=== PATIENT | male | born 1980 | race Caucasian/White ===

== ENCOUNTER 2019-06-14 17:31 | Emergency (ER) | payer OTHER ==
[2019-06-14] MEDS ORDERED: PSEUDOEPHEDRINE HCL 60 MG TABLET PO ONE (18:06)
[2019-06-14] MEDS ORDERED: IBUPROFEN 600 MG TABLET (FP) PO ONE ×2 (18:06→18:12)
--- NOTE | 2019-06-14 18:06 | PDOC ---
History of Present Illness - General Chief Complaint: Cold Symptoms Stated Complaint: FLU SYMPTOMS Time Seen by Provider: 06/14/19 17:35 - History of Present Illness Initial Comments: HPI: HPI: 39yo M with no reported PMH complaining of cough, congestion, chills for the past two weeks. Patient's sick contacts include his who has similar symptoms, but they started after his. No fevers. Cough was productive of clear sputum that has since turned yellow. Reports chills. Has taken dayquil and claritin for his symptoms with some relief. No nausea or vomiting. Tolerating po , but has a lessened appetite. Denies recent travel. No chest pain or shortness of breath. ROS: Constitutional: no fever, +chills HEENT: no throat pain, no dysphagia Cardiovascular: no chest pain, no palpitations Respiratory: +cough, no shortness of breath Gastrointestinal: no abdominal pain, no nausea Genitourinary: no dysuria, no hematuria Musculoskeletal: no myalgia, no arthralgia Skin: no rash, no itching Neurologic: no headache, no weakness Psych: no agitation, no confusion PE: General: Awake, alert, and fully oriented, in no acute distress Head: No signs of trauma Eyes: EOMI, sclera anicteric ENT: Moist mucus membranes Neck: Normal ROM, supple Lungs: Lungs clear, Normal breath sounds Cardio: Regular rhythm, S1 and S2 present Abdomen: Soft, nontender Extremities: Normal range of motion SKIN: Warm, Dry, normal turgor Neurologic: Cranial nerves II through XII grossly intact. Normal speech ED Course/MDM: DDX including but not limited to viral illness, bronchitis, anemia, metabolic derangement Presentation consistent with viral syndrome VS WNL Counseled supportive care Good handwashing Sudafed, flonase, motrin sent to pharmacy Return precautions Stable for discharge Past History - Past Medical History Allergies/Adverse Reactions: Allergies Allergy/AdvReac Type Severity Reaction Status Date / Time No Known Allergies Allergy Verified 06/14/19 17:39 Home Medications: Ambulatory Orders No Home Medications 0 dose .ROUTE UTDICT 06/27/12 Fluticasone Prop 0.05% Nasal [Flonase -] 1 - 2 spray NS DAILY #1 spray.pump Ibuprofen 400 mg PO Q6H PRN #30 tablet 06/14/19 Pseudoephedrine HCl [Sudafed] 60 mg PO Q6H #20 tablet 06/14/19 Asthma: Yes COPD: No - Psycho Social/Smoking Cessation Hx Smoking Status: No Smoking History: Never smoked Number of Cigarettes Smoked Daily: 0 Hx Alcohol Use: No Drug/Substance Use Hx: No *Physical Exam - Vital Signs Last Vital Signs Temp Pulse Resp BP Pulse Ox 98.4 F 65 19 116/71 97 06/14/19 17:32 06/14/19 17:32 06/14/19 17:32 06/14/19 17:32 06/14/19 17:32 Discharge - Discharge Information Problems reviewed: Yes Clinical Impression/Diagnosis: Congestion of nasal sinus Condition: Stable Disposition: HOME - Additional Discharge Information Prescriptions: Fluticasone Prop 0.05% Nasal [Flonase -] 1 - 2 spray NS DAILY #1 spray.pump Ibuprofen 400 mg PO Q6H PRN #30 tablet PRN Reason: Pain Pseudoephedrine HCl [Sudafed] 60 mg PO Q6H #20 tablet - Follow up/Referral - Patient Discharge Instructions Patient Printed Discharge Instructions: DI for Nasal Congestion Additional Instructions: You came into the emergency department. Your exam did not indicate acute pathology. Eat and hydrate throughout the day to prevent dehydration and low blood sugar levels. Prescription for ibuprofen (also available over the counter), flonase, and sudafed sent to your pharmacy. Take as instructed. Follow up with your primary care physician within 72 hours. Call and make an appointment to further evaluate your symptoms. Your workup is not complete until you do so. Immediate medical attention is required if you have: any chest pain, palpitations, shortness of breath, severe headaches, changes in vision, episodes of fainting, focal numbness or weakness, any severe abdominal pain, any black tarry stool, or any new or concerning symptoms. If you think you are having an emergency, call for emergency medical services or present to the emergency department right away. - Post Discharge Activity
[2019-06-14] MEDS ORDERED: PSEUDOEPHEDRINE HCL 30 MG TABLET ONE (18:12)
--- NOTE | 2019-06-14 18:41 | PDOC ---
Attending Attestation - Resident Resident Name: AmySabaIris - ED Attending Attestation I have performed the following: I have examined & evaluated the patient, The case was reviewed & discussed with the resident, I agree w/resident's findings & plan, Exceptions are as noted - HPI HPI: 06/14/19 18:39 39-year-old male no past medical history here today complaining of 2 weeks of nasal congestion and sore throat and now productive cough. Patient states that he initially thought it was sinusitis as he has had allergic sinusitis in the past. Started taking Claritin without much relief. Over the last few days has developed now a sore throat and green phlegm with worsening sinus congestion. Denies any fevers or chills no nausea no vomiting tolerating p.o. denies any recent travel does have a sick contact of his who is also being seen here today for sore throat and nasal congestion. Has been taking DayQuil with minimal relief no other current complaints - Physicial Exam PE: 06/14/19 18:40 Awake alert no acute distress bilateral nasal turbinate enlargement clear rhinorrhea throat with posterior pharynx cobblestoning. No tonsillar exudates. Lungs are clear bilaterally heart is regular 30 murmurs rubs or gallops abdomen soft nontender skin is warm and dry patient is awake alert and oriented x3 - Medical Decision Making 06/14/19 18:40 39-year-old male here with sinusitis-like symptoms and now postnasal drip with cough possibly viral versus allergic in origin. Likely a viral viral component. Plan Sudafed recommended in addition to Flonase lots hydration and rest. Prescription to pharmacy sent for Sudafed and Flonase to be used as directed.
[2019-06-14 18:52] VITALS: BP 116/71; PULSE 65; TEMP 98.4; BMI 31.7
== END 2019-06-14 18:26 | disposition home or self-care (01) ==
LOC: FER 17:31
DX: R09.81 Nasal congestion (principal)
CPT/HCPCS: 99282-25